=== PATIENT | female | born 1980 | race Caucasian/White ===

== ENCOUNTER → 2020-06-17 | Day surgery (SDC) | payer OTHER ==
[2020-06-17 07:41] LABS: HCG (URINE) SCREEN NEGATIVE (NEGATIVE)
[2020-06-17 07:42] LABS: HCT 44.1 % (37.0-47.0); MCH 34.2 pg (25.0-31.0); MCV 100.5 fL (78.0-100.0); MPV 9.6 fL (6.0-9.5); RBC 4.39 M/uL (4.20-5.40); RDW 12.7 % (11.5-14.0); WBC 7.3 K/uL (4.0-10.5)
[2020-06-17 07:58] LABS: ALBUMIN 4.2 g/dL (3.4-5.0); BILIRUBIN - TOTAL 0.6 mg/dL (0.2-1.0); CREATININE 0.83 mg/dL (0.51-0.95); GLOBULIN (CALCULATION) 3.7 g/dL; POTASSIUM 3.9 mmol/L (3.5-5.1); TOTAL PROTEIN 7.9 g/dL (6.4-8.2)
== END | disposition home or self-care (01) ==
LOC: FAS 07:08
PROVIDERS: Surgery
DX: Z12.11 Encounter for screening for malignant neoplasm of colon (principal); F41.9 Anxiety disorder, unspecified; F32.9 Major depressive disorder, single episode, unspecified; Z80.0 Family history of malignant neoplasm of digestive organs; Z88.2 Allergy status to sulfonamides; Z79.899 Other long term (current) drug therapy
CPT/HCPCS: 36415; 80053; 84703; J2250; J2704; J7120